=== PATIENT | male | born 1950 | race Caucasian/White ===

== ENCOUNTER → 2023-10-31 07:55 | Outpatient (REF) | payer MEDICARE, SELFPAY | LOC: DHCBC/DCA 07:55 | PROVIDERS: ATTENDING PHYSICIAN Internal Medicine Cardiovascular Disease; FAMILY PHYSICIAN Family Medicine | DX: I25.10 Atherosclerotic heart disease of native coronary artery without angina pectoris (principal); R07.89 Other chest pain | CPT/HCPCS: 78452; 93017; A9500 ==

== ENCOUNTER 2024-02-02 11:40 | Emergency (ER) | payer MEDICARE, SELFPAY ==
[2024-02-02] VITALS (25 sets, daily range): BP systolic 95–146; BP diastolic 60–104; BMI 30.3
[2024-02-02] MEDS: CARDIZEM 25 MG IV (12:03)
[2024-02-02] MEDS: NSS 1000 IV (12:03)
[2024-02-02 12:09] LABS: % Basophils 0.4 % (0-2); % Eosinophils 1.1 % (0-6); % Immature Granulocytes 0.3 % (0-0.5); % Lymphocytes 16.4 % (20.5-51.1); % Monocytes 6.4 % (1.7-9.3); % Neutrophils 75.4 % (42.2-75.2); Hematocrit 46.1 % (39.0-52.0); Hemoglobin 16.1 g/dL (13.0-18.0); Mean Corp Hgb Conc. 34.9 g/dL (33.0-37.0); Mean Corpuscular Hgb 32.1 pg (27.0-31.0); Mean Platelet Volume 10.4 fL (7.4-10.4); Platelet Count 154 10^3/uL (130-400); Red Blood Cell Count 5.01 10^6/uL (4.70-6.10); Red Cell Dist. Width 12.2 % (11.5-14.5); White Blood Cell Count 7.9 10^3/uL (4.8-10.8)
[2024-02-02 12:10] LABS: Absolute Eosinophils 0.1 10^3/uL (0-0.7); Absolute Lymphocytes 1.3 10^3/uL (1.2-3.4); Absolute Monocytes 0.5 10^3/uL (0.1-0.6); Nucleated Red Blood Cells % 0 % (-)
[2024-02-02 12:34] LABS: ALT (SGPT) 27 U/L (0-50); AST (SGOT) 26 U/L (17-59); Albumin 4.4 g/dl (3.5-5.0); Alkaline Phosphatase 81 U/L (38-126); Blood Urea Nitrogen 21 mg/dl (9-20); Calcium 9.8 mg/dl (8.4-10.2); Carbon Dioxide 25 mmol/L (22-30); Chloride 103 mmol/L (98-107); Estimated Creatinine Clearance > 125 ml/min; Glucose 181 mg/dl (70-99); Potassium 4.3 mmol/L (3.5-5.1); Sodium 138 mmol/L (135-145); Total Bilirubin 0.6 mg/dl (0.2-1.3); Total Protein 7.1 g/dl (6.3-8.2); eGFR > 60.00
[2024-02-02 12:47] LABS: Magnesium 1.9 mg/dl (1.6-2.3)
[2024-02-02] MEDS: DIPRIVAN 60 MG IV (13:17)
[2024-02-02] MEDS: DIPRIVAN 20 MG IV (13:19)
--- NOTE | 2024-02-02 13:28 | ED.GENMED ---
History of Present Illness
<Ru Cabrera PA-C - Last Filed: 02/02/24 17:24>
General
Chief Complaint: Heart Rate Problem
Time Seen by Provider: 02/02/24 11:50
Travel History
Have you had any contact with someone who has COVID-19?: No
Do you have any symptoms of coronavirus? Fever > 100 degrees, chills, cough, shortness of breath, sore throat, loss of taste or smell, muscle aches, or headache?: No
History of Present Illness
History of Present Illness:
69 male history of paroxysmal A-fib on Eliquis presents to the emergency department for evaluation of heart palpitations and elevated heart rate. This morning. Has required cardioversion in the past and states this feels similar. Denies any chest
pain or trouble breathing at this time. Has been fully compliant with his Eliquis. Last p.o. intake was approximately 3 to 4 hours ago. He admits to drinking red wine last night which has provoked A-fib in the past
Past History
<Ru Cabrera PA-C - Last Filed: 02/02/24 17:24>
Past History
ED Past Medical History: Arrthythmia (Atrial fib/Flutter), CAD, GERD, HTN and Hypercholesterolemia
ED Past Surgical History: Cardiac (Ablation, Stents X3,), Orthopedic and Other (Hernia repair)
Patient has exhibited threatening behavior?: No
PSI?: No
Social History
Tobacco: Smoker (Occasional cigar)
Alcohol: Occasional
Personal:
Living: with family
Employment: Employed
Review of Systems
<Ru Cabrera PA-C - Last Filed: 02/02/24 17:24>
Review of Systems
Allergies reviewed?: Yes
All Other Systems: ROS reviewed and negative except as documented in HPI and ROS
Phy Exam
<Ru Cabrera PA-C - Last Filed: 02/02/24 17:24>
Physical Exam
Physical Exam:
GEN: Well appearing, NAD, WDWN
HEENT: Oral mucosa moist, no scleral icterus
Cardiac: Tachycardic but regular, no murmurs
Lung: No respiratory distress, no tachypnea
MSK: No gross deformity or injuries
Skin: Good color, no pallor or jaundice, no rashes
Neuro: AO x3, moves all extremities freely
Psych: Calm, cooperative
Course
<Ru Cabrera PA-C - Last Filed: 02/02/24 17:24>
Orders/Labs/Results
Orders:
Orders
02/02/24 11:45
EKG [Electrocardiogram (*1)] Urgent
Reason for Study: Tachycardia
EKG- Treatment ONCE
02/02/24 11:57
IV Insert/Care/Rem.- Treatment PRN
02/02/24 11:58
Complete Blood Count/With Diff Urgent
Comprehensive Metabolic Panel Urgent
Magnesium Urgent
02/02/24 11:59
Add On- LAB Urgent
Tests Added?: magnesium
0.9% Sodium Chloride 1000 ml [Nss] 1,000 ml IV BOLUS
Diltiazem HCl [Cardizem] 25 mg IV NOW STA
02/02/24 12:43
Propofol [Diprivan] 20 ml .ROUTE .STK-MED
02/02/24 13:20
Propofol [Diprivan] 60 mg IV NOW STA
02/02/24 13:22
Propofol [Diprivan] 20 mg IV NOW STA
Abnormal Lab Results
02/02/24
11:58
MCH 32.1 H pg
(27.0-31.0)
Neutrophils % 75.4 H %
(42.2-75.2)
Lymphocytes % 16.4 L %
(20.5-51.1)
BUN 21 H mg/dl
(9-20)
Creatinine 0.6 L mg/dL
(0.7-1.3)
Glucose 181 H mg/dl
(70-99)
02/02/24 11:58
02/02/24 11:58
Vital Signs
Initial and Last Documented VS:
Initial Vital Signs
Temp Pulse Resp BP Pulse Ox
98.2 F 146 18 126/84 95
02/02/24 11:43 02/02/24 11:43 02/02/24 11:43 02/02/24 11:43 02/02/24 11:43
Last Documented Vital Signs
Temp Pulse Resp BP Pulse Ox
98.2 F 72 20 108/71 93
02/02/24 13:15 02/02/24 14:45 02/02/24 14:45 02/02/24 14:40 02/02/24 14:45
<Abhinav Walters, DO - Last Filed: 02/02/24 17:30>
Orders/Labs/Results
Orders:
Orders
02/02/24 11:45
EKG [Electrocardiogram (*1)] Urgent
Reason for Study: Tachycardia
EKG- Treatment ONCE
02/02/24 11:57
IV Insert/Care/Rem.- Treatment PRN
02/02/24 11:58
Complete Blood Count/With Diff Urgent
Comprehensive Metabolic Panel Urgent
Magnesium Urgent
02/02/24 11:59
Add On- LAB Urgent
Tests Added?: magnesium
0.9% Sodium Chloride 1000 ml [Nss] 1,000 ml IV BOLUS
Diltiazem HCl [Cardizem] 25 mg IV NOW STA
02/02/24 12:43
Propofol [Diprivan] 20 ml .ROUTE .STK-MED
02/02/24 13:20
Propofol [Diprivan] 60 mg IV NOW STA
02/02/24 13:22
Propofol [Diprivan] 20 mg IV NOW STA
Abnormal Lab Results
02/02/24
11:58
MCH 32.1 H pg
(27.0-31.0)
Neutrophils % 75.4 H %
(42.2-75.2)
Lymphocytes % 16.4 L %
(20.5-51.1)
BUN 21 H mg/dl
(9-20)
Creatinine 0.6 L mg/dL
(0.7-1.3)
Glucose 181 H mg/dl
(70-99)
02/02/24 11:58
02/02/24 11:58
Vital Signs
Initial and Last Documented VS:
Initial Vital Signs
Temp Pulse Resp BP Pulse Ox
98.2 F 146 18 126/84 95
02/02/24 11:43 02/02/24 11:43 02/02/24 11:43 02/02/24 11:43 02/02/24 11:43
Last Documented Vital Signs
Temp Pulse Resp BP Pulse Ox
98.2 F 72 20 108/71 93
02/02/24 13:15 02/02/24 14:45 02/02/24 14:45 02/02/24 14:40 02/02/24 14:45
Procedures
<Ru Cabrera PA-C - Last Filed: 02/02/24 17:24>
Moderate Sedation
Moderate Sedation Start Time(when first medication is given): 13:17
Moderate Sedation Procedure End Time: 13:27
Cardioversion
Indication:: Afib
Performed by:: Ru Cabrera PA-C, Abhinav Walters DO
Synchronized?: Yes
Energy Used: 150 joules
Number of attempts: 1
Successful?: Yes
ASA Risk Score: Class II
Any reaction or bad outcome to prior sedation/anesthesia?: No history of a reaction
Sedation level to be attained: moderate
Chart and allergies reviewed: Yes
Patient reassessed prior to sedation: Yes
Time out completed at (validating right patient & procedure): 13:16
History of difficult intubation: No
Airway free of obstruction: Yes
Patient has a gag reflex: Yes
Patient is able to open mouth: Yes
Patient has no dentures: Yes
Patient has no loose teeth: Yes
Medication administered by Provider during Moderate Sedation: IV Propofol (mg)
Total dose administered: 80
Time drug administered: 13:16
Start Time: 13:16
Stop Time: 13:27
<Ru Cabrera PA-C - Last Filed: 02/02/24 17:24>
MDM/Problems Addressed
MDM/Problems Addressed:
Patient was able to be rate controlled however remained in A-fib, ultimately required electrical cardioversion that was successful after 1 attempt. Tolerated sedation well.
<Ru Cabrera PA-C - Last Filed: 02/02/24 17:24>
*Critical Care Note
Total Time (30-74mins, 75-104mins- exclusive of procedures): Not Applicable
<Abhinav Walters DO - Last Filed: 02/02/24 17:30>
*Pulse Oximetry
Patient hypoxic: no
ED Attending Note
<Ru Cabrera PA-C - Last Filed: 02/02/24 17:24>
-
Portions of this chart may have been created with voice recognition software.� Occasional wrong word or��sound alike� substitutions may have occurred due to the inherent limitations of voice recognition software.
<Abhinav Walters DO - Last Filed: 02/02/24 17:30>
ED Attending Note
Patient seen and examined by attending physician: Yes
ED Attending Note:
I have reviewed and agree with history and treatment plan by Chuck Cabrera. My exam revealed 73-year-old male in no acute distress, tachycardia rapid atrial fibrillation. Patient tolerated sedation and cardioversion well. Stable for discharge.
Discharge Plan
Departure
Patient Disposition: Home (Routine Discharge)
Date of Disposition: 02/02/24
Time of Disposition: 14:01
Patient with high blood pressure during this ER visit?: No
Discharge Problem:
Paroxysmal A-fib
Instructions: Moderate Sedation in Adults (DC)
Prescriptions:
No Action
nitroglycerin 0.4 MG tablet, sublingual
0.4 mg sublingual [id number] PRN (Reason: Chest Pain ) Qty: 1 1RF
atorvastatin 80 MG tablet
80 mg PO QPM Qty: 30 3RF
Eliquis 5 MG tablet
5 mg PO BID
acyclovir 400 MG tablet
400 mg PO BID PRN (Reason: cold sores)
ascorbic acid (vitamin C) [Vitamin C] 500 MG tablet
500 mg PO BID
multivitamin Tablet
1 tab PO DAILY
metoprolol succinate 25 mg tablet extended release 24 hr
25 mg PO DAILY
Patient Comments:
02/27/2023: Pt had an old script that was originally filled in March of 2022. Pt states heart rate was high so he took one dose and it helped
ezetimibe 10 mg tablet
10 mg PO DAILY
Jardiance 10 mg tablet
10 mg PO DAILY
Referrals:
Aries Melo MD [Family Provider] -
Megan Valencia MD [Active] -
Activity Restrictions/Additional Instructions:
Call your master data analyst tomorrow for a follow up visit
Interventions
Interventions:
*Risk Screen - Suicide Last Done: 02/02/24 11:43
*General Assessment Last Done: 02/02/24 11:43
*Neglect/Abuse Screening Last Done: 02/02/24 11:43
ED- Fall Risk Assessment Last Done: 02/02/24 11:50
*ED COVID-19 Vaccine History Last Done: 02/02/24 11:43
*Nursing Disposition Last Done: 02/02/24 15:03
ED- Cardiac Assessment Last Done: 02/02/24 11:50
ED- Pulmonary Assessment Last Done: 02/02/24 11:50
Discharge Date and Time
Discharge Date/Time: 02/02/24 15:04
Print Language: ESTONIAN
== END 2024-02-02 15:04 | disposition home or self-care (01) ==
LOC: EMR 11:40
PROVIDERS: Physician Assistant; EMERGENCY PHYSICIAN Emergency Medicine; FAMILY PHYSICIAN Family Medicine
DX: R00.2 Palpitations (principal); I48.0 Paroxysmal atrial fibrillation; I25.10 Atherosclerotic heart disease of native coronary artery without angina pectoris; K21.9 Gastro-esophageal reflux disease without esophagitis; I10 Essential (primary) hypertension; E78.00 Pure hypercholesterolemia, unspecified; F17.200 Nicotine dependence, unspecified, uncomplicated; Z79.01 Long term (current) use of anticoagulants
CPT/HCPCS: 99283; 96374; 96375; 96376; 80053; 83735; 85025; 93005

== ENCOUNTER → 2024-04-19 06:32 | Day surgery (SDC) | payer MEDICARE, SELFPAY ==
[2024-04-19 07:32] LABS: Glucose - Point of Care 155 mg/dl (70-99)
== END ==
LOC: GI 06:32
PROVIDERS: ATTENDING PHYSICIAN Internal Medicine; FAMILY PHYSICIAN Internal Medicine Cardiovascular Disease
DX: Z12.11 Encounter for screening for malignant neoplasm of colon (principal); K57.30 Diverticulosis of large intestine without perforation or abscess without bleeding; K63.89 Other specified diseases of intestine; K63.5 Polyp of colon
CPT/HCPCS: 45380; 88305; 82962

== ENCOUNTER 2024-04-25 07:54 | Emergency (ER) | payer MEDICARE, SELFPAY ==
[2024-04-25 07:55] VITALS: BP 134/83
[2024-04-25 08:07] VITALS: BMI 30.7
[2024-04-25 08:09] VITALS: BP 119/80
[2024-04-25 08:11] VITALS: BP 119/80
[2024-04-25 08:26] LABS: % Basophils 0.6 % (0-2); % Eosinophils 2.5 % (0-6); % Immature Granulocytes 0.2 % (0-0.5); % Lymphocytes 25.2 % (20.5-51.1); % Monocytes 9.8 % (1.7-9.3); % Neutrophils 61.7 % (42.2-75.2); Absolute Eosinophils 0.1 10^3/uL (0-0.7); Absolute Lymphocytes 1.2 10^3/uL (1.2-3.4); Absolute Monocytes 0.5 10^3/uL (0.1-0.6); Hematocrit 43.6 % (39.0-52.0); Hemoglobin 15.4 g/dL (13.0-18.0); Mean Corp Hgb Conc. 35.3 g/dL (33.0-37.0); Mean Corpuscular Hgb 31.7 pg (27.0-31.0); Mean Corpuscular Volume 89.7 fL (80.0-94.0); Mean Platelet Volume 10.8 fL (7.4-10.4); Nucleated Red Blood Cells % 0 % (-); Platelet Count 138 10^3/uL (130-400); Red Blood Cell Count 4.86 10^6/uL (4.70-6.10); Red Cell Dist. Width 12.3 % (11.5-14.5); White Blood Cell Count 4.8 10^3/uL (4.8-10.8)
[2024-04-25 08:56] LABS: ALT (SGPT) 27 U/L (0-50); AST (SGOT) 27 U/L (17-59); Alkaline Phosphatase 74 U/L (38-126); Blood Urea Nitrogen 17 mg/dl (9-20); Calcium 9.2 mg/dl (8.4-10.2); Carbon Dioxide 26 mmol/L (22-30); Chloride 100 mmol/L (98-107); Estimated Creatinine Clearance 107 ml/min; Glucose 221 mg/dl (70-99); Potassium 4.3 mmol/L (3.5-5.1); Sodium 136 mmol/L (135-145); Total Bilirubin 0.6 mg/dl (0.2-1.3); Total Protein 6.4 g/dl (6.3-8.2); eGFR > 60.00
[2024-04-25 09:00] VITALS: BP 127/80
--- NOTE | 2024-04-25 09:12 | ED.GENMED ---
History of Present Illness
General
Chief Complaint: Cardiac Symptoms
Source: patient
Exam Limitations: none
Time Seen by Provider: 04/25/24 08:03
History of Present Illness
History of Present Illness:
74-year-old male woke this morning feeling he was in atrial fibrillation. No chest pain shortness of breath no syncope. History of same. Patient is anticoagulated and faithful with meds
Past History
Past History
ED Past Medical History: Arrthythmia (Atrial fib/Flutter), CAD, GERD, HTN and Hypercholesterolemia
ED Past Surgical History: Cardiac (Ablation, Stents X3,), Orthopedic and Other (Hernia repair)
Patient has exhibited threatening behavior?: No
PSI?: No
Social History
Tobacco: Smoker (Occasional cigar)
Alcohol: Occasional
Personal:
Living: with family
Employment: Employed
Review of Systems
Review of Systems
All Other Systems: Not applicable
Constitutional: Denies fever
Respiratory: Denies trouble breathing
Cardiac: Denies chest pain or syncope
Phy Exam
Physical Exam
Physical Exam:
GENERAL: Alert and oriented in no apparent distress
EYE: Orbits normal.
NECK: Supple
CARDIAC: Mildly irregular no murmur
LUNGS: Clear breath sounds,normal
ABDOMEN: Soft, without focal tenderness or distention
NEUROLOGICAL: Alert and oriented , grossly non-focal
SKIN: Warm and dry, no rash or lesion, no discoloration, skin intact.
MUSCULOSKELETAL: No edema,no deformity.Good color
PSYCH: Normal and appropriate interaction.
Course
Orders/Labs/Results
Orders:
Orders
04/25/24 07:55
Electrocardiogram (*1) Urgent
Reason for Study: Atrial Fibrillation
EKG- Treatment ONCE
04/25/24 08:16
CMP [Comprehensive Metabolic Panel] Urgent
Complete Blood Count/With Diff Urgent
Abnormal Lab Results
04/25/24
08:16
MCH 31.7 H pg
(27.0-31.0)
MPV 10.8 H fL
(7.4-10.4)
Monocytes % 9.8 H %
(1.7-9.3)
Glucose 221 H mg/dl
(70-99)
04/25/24 08:16
04/25/24 08:16
Vital Signs
Initial and Last Documented VS:
Initial Vital Signs
Temp Pulse Resp BP Pulse Ox
97.8 F 65 18 134/83 94
04/25/24 07:55 04/25/24 07:55 04/25/24 07:55 04/25/24 07:55 04/25/24 07:55
Last Documented Vital Signs
Temp Pulse Resp BP Pulse Ox
97.8 F 81 21 127/80 93
04/25/24 07:55 04/25/24 09:45 04/25/24 09:45 04/25/24 09:00 04/25/24 09:45
MDM/Problems Addressed
Differential Diagnosis Includes:
Patient with very rate controlled atrial fibrillation. Anticoagulated. No other symptoms. Discussed cardioversion versus more conservative management. Both are reasonable. After lengthy discussion patient is comfortable with observation to see
if this self resolves. Rate has been mostly in the 90s at rest. We will walk him around the ER to make sure he either does not become significantly symptomatic or have a significant bump in his heart rate.
*Pulse Oximetry
Patient hypoxic: no
*EKG
Interpreted by ED Provider?: Yes
Interpretation: abnormal
Comparison EKG: changes noted
Heart Rate: 102
Rate: tachycardiac
Rhythm: a-fib
[place]: normal axis
Interval: normal interval
QRS Pattern: normal QRS
Ischemia: non-specific ST changes
*Bag Builder Interpretation
Rate: normal
Interpretation: abnormal
Heart Rate: 95
Rhythm: a-fib
*Critical Care Note
Total Time (30-74mins, 75-104mins- exclusive of procedures): Not Applicable
Data Reviewed
Review of Other/Old Records Reveals: Labs, Records and Testing
Update Note
Update Note:
Patient ambulating well. Heart rate went up to about 115. Back to a heart rate about 90. Discussed again cardioversion versus observation. Patient is comfortable with observation. Cardiology contacted and is in agreement. They will follow-up
this week.
ED Attending Note
-
Portions of this chart may have been created with voice recognition software.� Occasional wrong word or��sound alike� substitutions may have occurred due to the inherent limitations of voice recognition software.
Discharge Plan
Departure
Patient Disposition: Home (Routine Discharge)
Date of Disposition: 04/25/24
Time of Disposition: 10:07
Patient with high blood pressure during this ER visit?: Yes
Discharge Problem:
Atrial fibrillation
Instructions: Atrial Fibrillation (DC)
Prescriptions:
No Action
nitroglycerin 0.4 MG tablet, sublingual
0.4 mg sublingual [id number] PRN (Reason: Chest Pain ) Qty: 1 1RF
atorvastatin 80 MG tablet
80 mg PO QPM Qty: 30 3RF
Eliquis 5 MG tablet
5 mg PO BID
acyclovir 400 MG tablet
400 mg PO BID PRN (Reason: cold sores)
ascorbic acid (vitamin C) [Vitamin C] 500 MG tablet
500 mg PO BID
multivitamin Tablet
1 tab PO DAILY
metoprolol succinate 25 mg tablet extended release 24 hr
25 mg PO DAILY
Patient Comments:
02/27/2023: Pt had an old script that was originally filled in March of 2022. Pt states heart rate was high so he took one dose and it helped
ezetimibe 10 mg tablet
10 mg PO DAILY
Jardiance 10 mg tablet
10 mg PO DAILY
Referrals:
Aries Melo MD [Family Provider] -
Activity Restrictions/Additional Instructions:
Call your cardiac group first thing tomorrow morning for follow-up this week. They are aware and you may also receive a call from them
As we discussed, return with persistent high heart rate chest pain short of breath lightheadedness feeling of passing out weakness or any other concerning symptom
Interventions
Interventions:
*Risk Screen - Suicide Last Done: 04/25/24 07:55
*General Assessment Last Done: 04/25/24 07:55
*Neglect/Abuse Screening Last Done: 04/25/24 07:55
ED- Fall Risk Assessment Last Done: 04/25/24 08:11
*ED COVID-19 Vaccine History Last Done: 04/25/24 08:11
ED- Pulmonary Assessment Last Done: 04/25/24 08:11
ED- Cardiac Assessment Last Done: 04/25/24 08:11
Discharge Date and Time
Print Language: COLOMBIAN
== END 2024-04-25 10:22 | disposition home or self-care (01) ==
LOC: EMR 07:54
PROVIDERS: EMERGENCY PHYSICIAN Emergency Medicine; FAMILY PHYSICIAN Family Medicine
DX: I48.91 Unspecified atrial fibrillation (principal); I10 Essential (primary) hypertension; F17.200 Nicotine dependence, unspecified, uncomplicated
CPT/HCPCS: 99283; 80053; 85025; 93005

== ENCOUNTER → 2024-04-26 15:20 | Outpatient (REF) | payer MEDICARE, SELFPAY | LOC: RAD 15:20 | PROVIDERS: ATTENDING PHYSICIAN Internal Medicine Cardiovascular Disease; FAMILY PHYSICIAN Family Medicine | DX: I65.23 Occlusion and stenosis of bilateral carotid arteries (principal) | CPT/HCPCS: 93880 ==

== ENCOUNTER 2024-04-27 18:50 | Inpatient (IN) | payer MEDICARE, SELFPAY ==
[2024-04-27] VITALS (8 sets, daily range): BP systolic 128–157; BP diastolic 79–123; BMI 29.3
--- NOTE | 2024-04-27 17:17 | ED.GENMED ---
History of Present Illness
General
Chief Complaint: Heart Rate Problem
Source: patient and records
Exam Limitations: none
Time Seen by Provider: 04/27/24 17:05
Nursing documentation reviewed up to this point in time: agreed with
History of Present Illness
History of Present Illness:
74-year-old male presents emergency room complaining of chest tightness, palpitations and weakness since Friday. He came to the emergency department on Friday, and they elected to wait to see if he converted. He went to cardiology office on Friday
and was told he get a cardioversion in May as he did miss Rubi anguiano.
Past History
Past History
ED Past Medical History: Arrthythmia (Atrial fib/Flutter), CAD, GERD, HTN and Hypercholesterolemia
ED Past Surgical History: Cardiac (Ablation, Stents X3,), Orthopedic and Other (Hernia repair)
Patient has exhibited threatening behavior?: No
PSI?: No
Social History
Tobacco: Smoker (Occasional cigar)
Alcohol: Occasional
Personal:
Living: with family
Employment: Employed
Review of Systems
Review of Systems
Allergies reviewed?: Yes
All Other Systems: Not applicable
Constitutional: Reports no symptoms
EENT: Reports no symptoms
Respiratory: Reports no symptoms
Cardiac: Reports palpitations
ABD/GI: Reports no symptoms
: Reports no symptoms
Musculoskeletal: Reports no symptoms
Skin: Reports no symptoms
Neurological: Reports no symptoms
Endocrine: Reports no symptoms
Hematologic/Lymphatic: Reports no symptoms
Psychiatric: Reports no symptoms
Phy Exam
Physical Exam
Physical Exam:
Physical Exam
General: no apparent distress, not acutely ill
Neck: supple. no meningeal signs. normal posterior pharynx
Heart: s1/s2 tachycardia, irregular rhythm, no murmur. equal radial
pulses.
HEENT: Pupils equal round reactive to light, EOMI
Lungs: no acute respiratory distress. clear bilaterally
Abdomen: normal bowel sounds. not tender. no CVAT
Neuro: alert and oriented. no focal neurological deficits cranial nerves II through XII intact
Skin: no rash
Psychiatric: well kept. interactive and cooperative
Extremities: no edema. no calf tenderness. negative homans. good distal pulses
Course
Orders/Labs/Results
Orders:
Orders
04/27/24 16:39
ECG [Electrocardiogram (*1)] Urgent
Reason for Study: Atrial Fibrillation
EKG- Treatment ONCE
04/27/24 17:19
Diltiazem 125 mg/125 ml Nss [Cardizem] 125 mg in 125 ml IV NOW
Initial dose in mg/hr, then titrate:: 5
Titrate to keep:: Heart rate 80-100 bpm
Titrate by mg/hr:: 5 mg/hr
Frequency of titrations (minutes):: 15
Maximum dose in mg/hr:: 15
Diltiazem HCl [Cardizem] 5 mg IV NOW STA
04/27/24 17:25
IV Insert/Care/Rem.- Treatment PRN
04/27/24 17:40
Complete Blood Count/With Diff Urgent
Comprehensive Metabolic Panel Urgent
04/27/24 18:37
Admit/Transfer Patient As Directed
Co-Sign Provider:
Level of Care: Inpatient admission
Assign to:: IVU
Physician / Group: constantine
Diagnosis: afib rvr
Reason for Hospitalization: afib rvr
Expected length of stay greater than two midnights?: Yes
ELOS- Estimated Length of Stay in days: 2
I certify the patient meets the requirements for IP care: Yes
PRN Pain Medication Management As Directed
May give lesser potent ordered pain med per pt: Yes
preference::
Protocol:: Medication orders for pain may be administered in a
manner that supports deferring to patient preference
when the pt is:
- Requesting an ordered lesser potent pain medication.
Least to most potent pain medications are defined
as: acetaminophen < NSAID < tramadol < opioids
(morphine, oxycodone, hydromorphone).
- Requesting a lesser dose of the same medication IF
ORDERED.
- Requesting a less intrusive route of administration
if both routes are prescribed by the provider (PO <
IV).
04/27/24 18:38
Code Status As Directed
Resuscitation Status: Full Code
Abnormal Lab Results
04/27/24
17:40
MCH 31.5 H pg
(27.0-31.0)
MPV 11.0 H fL
(7.4-10.4)
Glucose 134 H mg/dl
(70-99)
04/27/24 17:40
04/27/24 17:40
Vital Signs
Initial and Last Documented VS:
Initial Vital Signs
Temp Pulse Resp BP Pulse Ox
97.5 F 145 18 157/98 97
04/27/24 16:43 04/27/24 16:43 04/27/24 16:43 04/27/24 16:43 04/27/24 16:43
Last Documented Vital Signs
Temp Pulse Resp BP Pulse Ox
97.5 F 133 16 148/117 95
04/27/24 16:43 04/27/24 17:35 04/27/24 16:53 04/27/24 17:35 04/27/24 16:58
MDM/Problems Addressed
Differential Diagnosis Includes:
Rapid atrial fibrillation, CHF
MDM/Problems Addressed:
74-year-old female with rapid atrial fibrillation. Currently not a candidate for cardioversion as he has missed Eliquis doses. IV diltiazem drip, admit to hospitalist.
Chronic conditions affecting care: Arrhythmia
Acute Exacerbation and/or Progression of Chronic Illness: Arrhythmia
*Pulse Oximetry
Patient hypoxic: no
*EKG
Interpreted by ED Provider?: Yes
EKG Intrepretation Date: 04/27/24
EKG Intrepretation Time: 16:43
Interpretation: abnormal
Comparison EKG: no changes
Heart Rate: 97
Rate: normal
Rhythm: atrial flutter
[place]: normal axis
Interval: normal interval
QRS Pattern: normal QRS
Ischemia: no ischemia
*Head Gauge Unit Operator Interpretation
Rate: tachycardiac
Interpretation: abnormal
Heart Rate: 144
Rhythm: a-fib
*Critical Care Note
Total Time (30-74mins, 75-104mins- exclusive of procedures): 30
comment:
Critical care statement: A total of 30 minutes of critical care time was provided for this patient. This includes management of unstable vital signs, evaluation of the patient at bedside, reviewing the patient's pertinent medical records, discussion
with consultants, review of old EKGs and review of pertinent medical records. This time with separate from time utilized to perform the aforementioned documented procedures
Data Reviewed
Prescriptions/Medications Considered But Not Given:
Cardioversion considered, but not indicated
Patient Management
Discussion with other providers: Hospitalist
Escalation/DeEscalation of care consider admission/obs:
Admit indicated
ED Attending Note
-
Portions of this chart may have been created with voice recognition software.� Occasional wrong word or��sound alike� substitutions may have occurred due to the inherent limitations of voice recognition software.
Discharge Plan
Departure
Patient Disposition: Admit
Date of Disposition: 04/27/24
Time of Disposition: 18:15
Admit to: IVU
Presentation/result/management discussed w/ accepting MD/DO: Hospitalist
Patient with high blood pressure during this ER visit?: Yes
Condition: Fair
Discharge Problem:
Atrial fibrillation with RVR
Prescriptions:
No Action
Eliquis 5 MG tablet
5 mg PO BID
acyclovir 400 MG tablet
400 mg PO BIDPRN PRN (Reason: cold sores)
multivitamin Tablet
1 tab PO DAILY
metoprolol succinate 25 mg tablet extended release 24 hr
25 mg PO QPM
Patient Comments:
02/27/2023: Pt had an old script that was originally filled in March of 2022. Pt states heart rate was high so he took one dose and it helped
ezetimibe 10 mg tablet
10 mg PO DAILY
Jardiance 10 mg tablet
10 mg PO DAILY
rosuvastatin 40 mg tablet
40 mg PO DAILY
Referrals:
Aries Melo MD [Family Provider] -
Interventions
Interventions:
*Risk Screen - Suicide Last Done: 04/27/24 16:43
*General Assessment Last Done: 04/27/24 16:43
*Neglect/Abuse Screening Last Done: 04/27/24 16:43
ED- Fall Risk Assessment Last Done: 04/27/24 16:58
*ED COVID-19 Vaccine History Last Done: 04/27/24 16:58
ED- Cardiac Assessment Last Done: 04/27/24 16:58
ED- Pulmonary Assessment Last Done: 04/27/24 16:58
Discharge Date and Time
Print Language: INDONESIAN
[2024-04-27] MEDS: CARDIZEM 125 IV (17:34)
[2024-04-27] MEDS: CARDIZEM 5 MG IV (17:35)
[2024-04-27 17:49] LABS: % Basophils 0.7 % (0-2); % Eosinophils 1.6 % (0-6); % Immature Granulocytes 0.4 % (0-0.5); % Lymphocytes 25.5 % (20.5-51.1); % Monocytes 7.7 % (1.7-9.3); % Neutrophils 64.1 % (42.2-75.2); Absolute Eosinophils 0.1 10^3/uL (0-0.7); Absolute Lymphocytes 1.5 10^3/uL (1.2-3.4); Absolute Monocytes 0.4 10^3/uL (0.1-0.6); Absolute Neutrophils 3.6 10^3/uL (1.4-6.5); Hematocrit 44.5 % (39.0-52.0); Hemoglobin 15.7 g/dL (13.0-18.0); Mean Corp Hgb Conc. 35.3 g/dL (33.0-37.0); Mean Corpuscular Hgb 31.5 pg (27.0-31.0); Mean Corpuscular Volume 89.4 fL (80.0-94.0); Nucleated Red Blood Cells % 0 % (-); Platelet Count 145 10^3/uL (130-400); Red Blood Cell Count 4.98 10^6/uL (4.70-6.10); Red Cell Dist. Width 12.4 % (11.5-14.5); White Blood Cell Count 5.7 10^3/uL (4.8-10.8)
[2024-04-27 18:07] LABS: ALT (SGPT) 30 U/L (0-50); AST (SGOT) 32 U/L (17-59); Albumin 4.6 g/dl (3.5-5.0); Alkaline Phosphatase 62 U/L (38-126); Blood Urea Nitrogen 16 mg/dl (9-20); Calcium 9.4 mg/dl (8.4-10.2); Carbon Dioxide 24 mmol/L (22-30); Chloride 101 mmol/L (98-107); Estimated Creatinine Clearance 94 ml/min; Glucose 134 mg/dl (70-99); Sodium 137 mmol/L (135-145); Total Bilirubin 0.8 mg/dl (0.2-1.3); Total Protein 7.1 g/dl (6.3-8.2); eGFR > 60.00
--- NOTE | 2024-04-27 18:41 | HPS.HSE ---
Addendum entered and electronically signed by Arianna Viera MD 04/27/24 18:44:
Alcohol withdrawal protocol.
Original Note:
Family Physician
-
Family Physician: Aries Melo
Chief Complaint
-
chest pressure
History of Present Illness
74-year-old male past medical history of atrial fibrillation/flutter status post ablation, syncope secondary to orthostatic hypotension, coronary artery disease status post stents, mild aortic stenosis, diabetes, essential hypertension, GERD,
hypercholesterolemia, presenting with chest tightness, palpitations and weakness and dizziness for the past 2 days. He came to the emergency room 2 days ago and outpatient cardioversion was recommended. He is continue to have symptoms so he came
back to the emergency room. He denies any shortness of breath or nausea or vomiting or sweating. He denies any lower extremity edema.
He missed 1 dose of Eliquis last week due to having screening colonoscopy. Colonoscopy was unremarkable.
He drinks 2 to 4 glasses of wine up to 4 times a week. His last drink was last night.
He denies smoking. Denies any drugs.
Medical History
Past Medical History
Past Medical History: Reports Other (atrial fibrillation/flutter status post ablation, syncope secondary to orthostatic hypotension, coronary artery disease status post stents, mild aortic stenosis, diabetes, essential hypertension, GERD,
hypercholesterolemia)
Past Surgical History: Reports Other (Cardiac (Ablation, Stents X3,), Orthopedic and Other (Hernia repair))
Social History
Tobacco: Non-smoker
Alcohol: Occasional
Drug: None
Family History
Family History: Not pertinent
Allergies / Home Medications
Allergies reflects when Allergies were last updated in [employer].
Home Medications with original date entered in [facility]
Allergy/Medication List:
Allergies
Allergy/AdvReac Type Severity Reaction Status Date / Time
No Known Allergies Allergy Verified 04/25/24 07:55
Home Medications
acyclovir 400 mg tablet 400 mg PO BIDPRN PRN cold sores 07/24/18
apixaban 5 mg tablet (Eliquis) 5 mg PO BID Blood Clot Prevention/Tx 07/24/18
empagliflozin 10 mg tablet (Jardiance) 10 mg PO DAILY Diabetes 02/27/23
ezetimibe 10 mg tablet 10 mg PO DAILY High Cholesterol 02/27/23
metoprolol succinate 25 mg tablet,extended release 24 hr 25 mg PO QPM Blood Pressure 02/27/23
multivitamin 1 tab PO DAILY Supplement 02/27/23
rosuvastatin 40 mg tablet 40 mg PO DAILY 04/27/24
Review of Systems
-
History Source: Patient
A 12 point ROS was completed and negative except as noted: Yes
Constitutional: Reports No Symptoms
EENT: Reports No Symptoms
Respiratory: Reports No Symptoms
Cardiac: Reports See HPI
Abdomen/GI: Reports No Symptoms
: Reports No Symptoms
Musculoskeletal: Reports No Symptoms
Skin: Reports No Symptoms
Neurological: Reports No Symptoms
Endocrine: Reports No Symptoms
Hematologic/Lymphatic: Reports No Symptoms
Psych: Reports No Symptoms
Physical Exam
Vital Signs
Vital Signs
Temp Pulse Resp BP Pulse Ox
97.5 F 133 16 148/117 95
04/27/24 16:43 04/27/24 17:35 04/27/24 16:53 04/27/24 17:35 04/27/24 16:58
Physical Exam
General: Well Developed, Well Nourished and No Apparent Distress
HEENT: NormoCephalic, Moist mucous membranes and Atraumatic
Respiratory: Clear
Cardiac: S1/S2, Irregular Rhythm and Tachycardia; No Murmur or Rub
GI: Soft, Non Tender, Non Distended and Normal Bowel Sounds; No Organomegaly
Rectal: Deferred by Provider
Musculoskeletal: No Clubbing, No Cyanosis and No Edema
Skin: No Rash
Neuro: Nonfocal/grossly intact
Laboratory Results
-
04/27/24 17:40
04/27/24 17:40
Laboratory Results
Total Bilirubin 0.8 mg/dl (0.2-1.3) 04/27/24 17:40
AST 32 U/L (17-59) 04/27/24 17:40
ALT 30 U/L (0-50) 04/27/24 17:40
Alkaline Phosphatase 62 U/L (38-126) 04/27/24 17:40
Data Reviewed
-
Lab Data: Labs Reviewed by me
Old Records: Reviewed
Impression/Plan
-
IMPRESSION:
PLAN:
# Atrial fibrillation with RVR possibly from alcohol use
-EKG shows
-Cardizem drip
-Continue Eliquis
-Continue metoprolol
-Check TSH
-N.p.o. past midnight for potential cardioversion tomorrow
-cardiology consulted
Moderate alcohol use
-Monitor for withdrawal
CAD status post stents
Mild aortic stenosis
Essential hypertension
GERD
Type 2 diabetes
-Continue Jardiance
Hypercholesterolemia
-Continue Zetia, statin
Full code
DVT prophylaxis�Eliquis
Regular diet, n.p.o. past midnight
--- NOTE | 2024-04-27 20:36 | PTCARENOTE ---
Pt admitted into [facility]- ambulated as a self. Cardizem gtt running @ 5ml/hr. HR in the 80s-90s. AFIB.
[2024-04-27] MEDS: ELIQUIS 5 MG PO (20:44)
[2024-04-27 22:42] LABS: TSH Reflex To Free T4 2.23 uIU/ml (0.47-4.68)
[2024-04-28] VITALS (10 sets, daily range): BP systolic 100–127; BP diastolic 69–98; BMI 29.4
--- NOTE | 2024-04-28 03:07 | DOWNTIME ---
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 Downtime documentation of patient's care, including medication administrations, has been reconciled in the electronic record per guidelines. Refer to the
patient's paper chart under the miscellaneous tab to see printed paper medication records and downtime forms.
[2024-04-28 04:50] LABS: % Basophils 0.5 % (0-2); % Eosinophils 3.2 % (0-6); % Immature Granulocytes 0.2 % (0-0.5); % Lymphocytes 26.2 % (20.5-51.1); % Monocytes 7.6 % (1.7-9.3); % Neutrophils 62.3 % (42.2-75.2); Absolute Eosinophils 0.2 10^3/uL (0-0.7); Absolute Lymphocytes 1.5 10^3/uL (1.2-3.4); Absolute Monocytes 0.4 10^3/uL (0.1-0.6); Absolute Neutrophils 3.5 10^3/uL (1.4-6.5); Hematocrit 44.5 % (39.0-52.0); Hemoglobin 15.7 g/dL (13.0-18.0); Mean Corp Hgb Conc. 35.3 g/dL (33.0-37.0); Mean Corpuscular Hgb 31.5 pg (27.0-31.0); Mean Corpuscular Volume 89.2 fL (80.0-94.0); Mean Platelet Volume 10.6 fL (7.4-10.4); Nucleated Red Blood Cells % 0 % (-); Platelet Count 145 10^3/uL (130-400); Red Blood Cell Count 4.99 10^6/uL (4.70-6.10); Red Cell Dist. Width 12.3 % (11.5-14.5); White Blood Cell Count 5.7 10^3/uL (4.8-10.8)
[2024-04-28 04:55] LABS: ALT (SGPT) 29 U/L (0-50); AST (SGOT) 28 U/L (17-59); Albumin 4.1 g/dl (3.5-5.0); Alkaline Phosphatase 60 U/L (38-126); Blood Urea Nitrogen 16 mg/dl (9-20); Calcium 9.1 mg/dl (8.4-10.2); Carbon Dioxide 23 mmol/L (22-30); Chloride 103 mmol/L (98-107); Estimated Creatinine Clearance 94 ml/min; Glucose 140 mg/dl (70-99); Potassium 4.2 mmol/L (3.5-5.1); Sodium 135 mmol/L (135-145); Total Bilirubin 0.8 mg/dl (0.2-1.3); Total Protein 6.6 g/dl (6.3-8.2); eGFR > 60.00
--- NOTE | 2024-04-28 08:58 | W.PN.HOSP.TC ---
Addendum entered and electronically signed by Sajan Narayanan MD 04/28/24 09:16:
I saw and evaluated the patient. I reviewed the resident�s note and agree with findings and plan as documented in the resident�s note.
Denies CP/SOB.
Gen: NAD, AAOx3.
Eyes: EOMI, PERRLA, no scleral icterus.
Neck: supple.
CV: RRR, +S1/S2, no m/r/g.
Resp: CTAB, no rales, wheezes, or rhonchi.
Abd: +BS, soft, NT, ND
Skin: No rashes.
Neuro: CN 2-12 intact, non-focal.
Psych: Normal mood and affect.
Atrial flutter with RVR:
-Tele with aflutter
-cont cardizem gtt
-cont Eliquis
-possible TEECV
-discussed with cardiology
Original Note:
Today's Communication/Plan
-
Plan pending cardiology recommendations. Likely cardioversion. Keep NPO
Assessment / Plan
Assessment / Plan
# Atrial fibrillation with RVR possibly from alcohol use
-EKG shows A.fib
-On telemetry
-Continue Cardizem drip
-Continue Eliquis
-Continue metoprolol
-Check TSH
-N.p.o. for potential cardioversion today
-cardiology recommendations pending
#Moderate alcohol use
-Monitor for withdrawal
#CAD status post stents
#Mild aortic stenosis
#Essential hypertension
#GERD
#DM2 -Continue Jardiance
#Hypercholesterolemia -Continue Zetia, statin
Anticipated Discharge: Within 24 hours
Subjective/Interval History
-
Date of Service: April 28, 2024
Objective Data
-
Labs:
Laboratory Results
04/28/24
04:01
WBC 5.7
Hgb 15.7
Hct 44.5
Plt Count 145
Sodium 135
Potassium 4.2
Chloride 103
Carbon Dioxide 23
BUN 16
Creatinine 0.7
Glucose 140 H
Calcium 9.1
Total Bilirubin 0.8
AST 28
ALT 29
Alkaline Phosphatase 60
Vital Signs:
Vital Signs
Temp Pulse Resp BP Pulse Ox
98 F 74 20 100/82 97
04/28/24 07:00 04/28/24 04:01 04/28/24 07:00 04/28/24 04:01 04/28/24 07:00
I&O
04/27/24 04/28/24 04/29/24
06:59 06:59 06:59
Intake Total 290 / 290
Balance 290 / 290
Review of Systems
-
History Source: Patient
Respiratory: Reports No Symptoms
Cardiac: Reports Palpitations; Denies Chest Pain, Diaphoresis or Syncope
Abdomen/GI: Reports No Symptoms
Genitourinary: Reports No Symptoms
Neuro: Reports No Symptoms; Denies Dizzy, Headache or Weakness
Physical Exam
-
General: Well Developed, Well Nourished, No Apparent Distress and Comfortable
HEENT: Normocephalic
Cardiac: Irregular Rhythm; Negative Murmur, Rub or Tachycardic
GI: Soft, Nontender and Nondistended
Musculoskeletal: No Edema
Skin: Warm and Dry
Neuro: AO x 3
Psych: Calm
[2024-04-28] MEDS: VITAMIN B1 100 MG PO (09:15)
[2024-04-28] MEDS: CRESTOR 40 MG PO (09:15)
[2024-04-28] MEDS: FOLVITE 1 MG PO (09:15)
[2024-04-28] MEDS: ELIQUIS 5 MG PO ×2 (09:16→20:16)
[2024-04-28] MEDS: JARDIANCE 10 MG PO (09:16)
[2024-04-28] MEDS: THERAGRAN 1 TABLET PO (09:16)
[2024-04-28] MEDS: ZETIA 10 MG PO (09:16)
--- NOTE | 2024-04-28 10:18 | CON.CAR ---
Addendum entered and electronically signed by John Crespo MD 04/28/24 12:28:
74 yo male with PMH of paroxysmal A fib on eliquis, s/p PVI 2019, CAD with prior stent, mild , presents to ED with symptomatic A fib with RVR. Now on diltiazem drip, with rate controlled atrial flutter, with no sxs. Exam with irregular rhythm, no
edema. Tele: A fl 70s.
He did have eliquis held recently for colonoscopy. We discussed rhythm control. Will proceed with SRIRAM/DCCV tomorrow.
Continue eliquis; and diltiazem drip.
If A fib or flutter recurs, we discussed referral back to EP.
Original Note:
Consultation
Consultation Request
Date/Time Consultation Requested: 04/27/24 9727
Date/Time Consultation Performed: 04/28/24 1000
Requesting Provider: Dr. Viera
Performing Provider: June ALFORD for Dr. Crespo
Reason for Consultation: AFIB/flutter
Medical History
-
Chief Complaint: chest sensation, light-headedness, tachycardia
History of Present Illness:
74 y/o male with PAF s/p PVI 2018 (Dr. Yates)- previously on sotalol- d/c'd, hypertension, dyslipidemia, CAD with stenting, and DM who came to the ER 04/25/24 with recurrent AFIB. Cardioversion was discussed, but not done. He was seen in our
office on Friday and metoprolol was started, and CV was discussed. He had missed a dose of Eliquis for routine colonoscopy 04/19/24. He returned to hospital last night because when he was walking to the bank, he felt a chest discomfort (not pain, but
'odd' sensation), not like his previous angina. His apple watch told him HR was 140's-150's. He felt light-headed and came to the ER, where he was seen to be in AFIB with RVR. He is currently on a diltiazem drip and is in no distress at the time of
my assessment. HR is well-controlled at rest in 70's, but becomes elevated with ambulation.
Past Medical History
Past Medical History: Arrhythmias, CAD, HTN, Hypercholesterolemia and NIDDM
Social History
Alcohol: Other (3-4 days per week 2-4 drinks)
Family History
Family History: CAD
Allergies / Home Medications
Allergy/AdvReac Type Severity Reaction Status Date / Time
No Known Allergies Allergy Verified 04/25/24 07:55
�Medication �Instructions �Recorded �Confirmed �Type
acyclovir 400 mg tablet 400 mg PO BIDPRN PRN cold sores 07/24/18 04/27/24 History
apixaban 5 mg tablet (Eliquis) 5 mg PO BID Blood Clot 07/24/18 04/27/24 History
Prevention/Tx
empagliflozin 10 mg tablet 10 mg PO DAILY Diabetes 02/27/23 04/27/24 History
(Jardiance)
ezetimibe 10 mg tablet 10 mg PO DAILY High Cholesterol 02/27/23 04/27/24 History
metoprolol succinate 25 mg 25 mg PO QPM Blood Pressure 02/27/23 04/27/24 History
tablet,extended release 24 hr
multivitamin 1 tab PO DAILY Supplement 02/27/23 04/27/24 History
rosuvastatin 40 mg tablet 40 mg PO DAILY 04/27/24 04/27/24 History
Review of Systems
-
History Source: Patient
All other systems: Negative unless noted
Cardiac: Other (chest discomfort and tachycardia as described)
Physical Exam
Vital Signs
Temp Pulse Resp BP Pulse Ox
98 F 74 20 100/82 97
04/28/24 07:00 04/28/24 04:01 04/28/24 07:00 04/28/24 04:01 04/28/24 07:00
Lab Results
04/28/24 04:01
04/28/24 04:01
Physical Exam
General: Well Developed, Well Nourished and No Apparent Distress
HEENT: Normocephalic and Anicteric
Respiratory: Clear and Non Labored Respirations
Cardiac: Irregular Rhythm and Murmur (II/ systolic)
Musculoskeletal: No Edema
Skin: Warm and Dry
Neuro: AO x 3
Psych: Calm
Impression / Plan
-
AFIB with RVR, persistent, atrial flutter (typical):
-Rate-controlled on diltiazem drip- continue IV diltiazem for today- this medication requires intensive monitoring
-continue metoprolol
-continue Eliquis
-update echo
-SRIRAM/CV in AM (missed Eliquis last week for colonoscopy)- discussed with patient and will arrange
-drinks 2-4 drinks 3-4 days per week. I told him best practice with AFIB is no ETOH, but at least needs to cut back.
CAD with hx stenting:
-no recurrence of his anginal symptoms
-continue Eliquis, Crestor
Mild :
-update echo
Data Reviewed
-
EKG: Tracing Personally Visualized and interpreted (AFlutter 97 BPM)
Medical Tests (Nuc Med, Echo etc): Report Reviewed by me (Echo 09/20/21: EF 55-60% by visual assessment. Mild concentric left ventricular hypertrophy. Mildly dilated left atrium. Indexed LA volume is mildly abnormal (35-41 mL/m2). Mild aortic
stenosis with calcified, trileaflet aortic valve with peak and mean gradients of 28 and 14 mmHg, respectively. Estim)
Labs: Labs Reviewed by me
--- NOTE | 2024-04-28 11:15 | CM ---
Chart reviewed. Patient is independent of ADLS, lives with his n a 2 STH, 3 DARLENE, 0 DME. Offered patient substance abuse counseling, patient denied. Plan is for the patient to return home. CM to follow
[2024-04-28] MEDS: CARDIZEM 125 IV (15:00)
[2024-04-28] MEDS: TOPROL XL 25 MG PO (17:57)
--- NOTE | 2024-04-28 20:55 | PTCARENOTE ---
Pt received at change of shift, sitting OOB in chair. See nursing shift assessment for full assessment. Ox3, HR 70's, aflutter. Cardizem gtt running @ 10ml/hr. Titrated to 5ml/hr for HR in 70's. No concerns at this time. Call yang in reach.
[2024-04-29 03:00] VITALS: BP 114/82
--- NOTE | 2024-04-29 03:07 | PTCARENOTE ---
Rec'd pt at 2300. Pt on TELE monitor in Aflutter with rate controlled, VSS and AAOx3. Pt denied any pain or palpitations and has Cardizem infusing at 5mL's per hour. Pt NPO at midnight for SRIRAM and possible cardioversion today. Pt resting with
call yang in reach.
[2024-04-29 03:35] VITALS: BP 114/82
[2024-04-29 05:10] LABS: Hematocrit 44.5 % (39.0-52.0); Mean Corp Hgb Conc. 35.2 g/dL (33.0-37.0); Mean Corpuscular Hgb 32.3 pg (27.0-31.0); Mean Corpuscular Volume 91.7 fL (80.0-94.0); Mean Platelet Volume 10.7 fL (7.4-10.4); Platelet Count 126 10^3/uL (130-400); Red Blood Cell Count 4.95 10^6/uL (4.70-6.10); Red Cell Dist. Width 12.2 % (11.5-14.5); White Blood Cell Count 6.4 10^3/uL (4.8-10.8)
[2024-04-29 05:12] LABS: Blood Urea Nitrogen 21 mg/dl (9-20); Calcium 9.2 mg/dl (8.4-10.2); Carbon Dioxide 24 mmol/L (22-30); Chloride 106 mmol/L (98-107); Estimated Creatinine Clearance 94 ml/min; Glucose 137 mg/dl (70-99); Potassium 4.2 mmol/L (3.5-5.1); Sodium 138 mmol/L (135-145); eGFR > 60.00
[2024-04-29 05:20] VITALS: BMI 29.5
[2024-04-29 07:33] VITALS: BP 107/75
[2024-04-29] MEDS: ELIQUIS 5 MG PO (07:59)
--- NOTE | 2024-04-29 09:10 | W.PN.HOSP.TC ---
Addendum entered and electronically signed by Sajan Narayanan MD 04/29/24 11:21:
Total time spent on d/c = 32 min. This included today's physical exam, progress note, review of laboratory and diagnostic data, preparation of discharge documents and prescriptions, and discussions about the pt's hospital course and discharge plan
with the patient and other medical physics researcher involved in the patient's care.
Addendum entered and electronically signed by Sajan Narayanan MD 04/29/24 09:21:
I saw and evaluated the patient. I reviewed the resident�s note and agree with findings and plan as documented in the resident�s note.
Denies CP/SOB.
Gen: NAD, AAOx3.
Eyes: EOMI, PERRLA, no scleral icterus.
Neck: supple.
CV: remains RRR, +S1/S2, no m/r/g.
Resp: CTAB anteriorly, no rales, wheezes, or rhonchi.
Abd: +BS, soft, NT, ND
Skin: No rashes.
Neuro: remains CN 2-12 intact, non-focal.
Psych: Normal mood and affect.
Echo (TTE): Normal left ventricular size and function with mild concentric remodeling and
normal regional wall motion. LV ejection fraction is 60-65% by Fontenot's method
of discs. Diastolic function indeterminate.
Normal right ventricular size and function.
Mild left atrial dilation.
Thickened, trileaflet aortic valve with restricted leaflet motion and mild to
moderate aortic stenosis.
Mildly dilated aortic root and ascending aorta.
No evidence of pulmonary hypertension.
No significant change since the prior study of 09/20/2021.
Atrial flutter with RVR:
-Tele with aflutter
-cont cardizem gtt
-cont Eliquis
-echo above, unremarkable and no change from prior
-TEECV today
-discussed with cardiology
Original Note:
Today's Communication/Plan
-
Pt scheduled for SRIRAM and cardioversion today. Continue diltiazem drip and Eliquis
Assessment / Plan
Assessment / Plan
# Atrial fibrillation with RVR possibly from alcohol use
-EKG shows A.fib
-Echo 04/28/24 showed LVEF 60-65% with intermediate diastolic dysfunction. No intracardiac mass or thrombus formation seen
-On telemetry
-Continue Cardizem drip
-Continue Eliquis
-Continue metoprolol
-Check TSH
-N.p.o. for potential cardioversion today
-Pt scheduled for SRIRAM and cardioversion today
#Moderate alcohol use
-Monitor for withdrawal
#CAD status post stents
#Mild aortic stenosis
#Essential hypertension
#GERD
#DM2 -Continue Jardiance
#Hypercholesterolemia -Continue Zetia, statin
Anticipated Discharge: Within 24 hours
Subjective/Interval History
-
Date of Service: April 29, 2024
Objective Data
-
Labs:
Laboratory Results
04/29/24
03:44
WBC 6.4
Hgb 16.0
Hct 44.5
Plt Count 126 L
Sodium 138
Potassium 4.2
Chloride 106
Carbon Dioxide 24
BUN 21 H
Creatinine 0.7
Glucose 137 H
Calcium 9.2
Vital Signs:
Vital Signs
Temp Pulse Resp BP Pulse Ox
97.2 F 74 18 107/75 96
04/29/24 07:31 04/29/24 08:00 04/29/24 07:31 04/29/24 07:33 04/29/24 07:31
I&O
04/28/24 04/29/24 04/30/24
06:59 06:59 06:59
Intake Total 290 / 290 890 / 890
Balance 290 / 290 890 / 890
Review of Systems
-
History Source: Patient
Respiratory: Reports No Symptoms
Cardiac: Reports No Symptoms
Abdomen/GI: Reports No Symptoms
Genitourinary: Reports No Symptoms
Neuro: Reports No Symptoms
Physical Exam
-
Respiratory: Clear to Auscultation
Cardiac: Regular Rhythm and S1/S2
GI: Soft, Nontender and Nondistended
Musculoskeletal: No Edema
Neuro: AO x 3
Psych: Calm
--- NOTE | 2024-04-29 11:03 | W.PN.CD ---
Today's Communication / Plan
-
SRIRAM DCCV today
Back in [facility]
OK for discharge.
We will sign off please call with questions/concerns.
Impression / Plan
-
AFIB with RVR, persistent, atrial flutter (typical):
-stop dilt, s/p DCCV
-continue metoprolol
-continue Eliquis
-update echo --> Below
-SRIRAM/CV back in [facility]
-drinks 2-4 drinks 3-4 days per week. I told him best practice with AFIB is no ETOH, but at least needs to cut back.
CAD with hx stenting:
-no recurrence of his anginal symptoms
-continue Eliquis, Crestor
Mild :
-update echo
Subjective: feeling well no new complaints
TTE:CONCLUSIONS
Normal left ventricular size and function with mild concentric remodeling and
normal regional wall motion. LV ejection fraction is 60-65% by Fontenot's method
of discs. Diastolic function indeterminate.
Normal right ventricular size and function.
Mild left atrial dilation.
Thickened, trileaflet aortic valve with restricted leaflet motion and mild to
moderate aortic stenosis.
Mildly dilated aortic root and ascending aorta.
No evidence of pulmonary hypertension.
No significant change since the prior study of 09/20/2021.
Physical Exam
Vital Signs/Labs
Vital Signs
Temp Pulse Resp BP Pulse Ox
97.2 F 74 18 107/75 96
04/29/24 07:31 04/29/24 08:00 04/29/24 07:31 04/29/24 07:33 04/29/24 07:31
04/28/24 04/29/24 04/30/24
06:59 06:59 06:59
Actual Weight 204 lb 205 lb 4.006 oz
04/29/24 03:44
04/29/24 03:44
Physical Exam
Constitutional: No acute distress and Comfortable
EENT: Anicteric
Cardiovascular: Rhythm & rate is regular and Pedal edema is absent
Respiratory: Respiratory effort normal
GI: Soft
Neuro/Psych: AO x 3
Data Reviewed
-
Date of Service: April 29, 2024
EKG: Tracing Personally Visualized and interpreted (sr)
Echo: Tracing Personally Visualized and interpreted and Report Reviewed by me
Labs: Labs Reviewed by me
--- NOTE | 2024-04-29 11:28 | W.DCSUMMARY ---
Addendum entered and electronically signed by Sajan Narayanan MD 04/29/24 11:53:
Read, reviewed, and agree. See same day progress note for additional details.
Original Note:
Discharge Summary
Discharge Data
Date of Admission: 04/27/24
Date of Discharge: 04/29/24
-
Pending Results: No
Hospital Course
Primary diagnosis:
Atrial fibrillation with rapid ventricular response
Secondary diagnosis:
Coronary artery disease
Mild aortic stenosis
Essential hypertension
GERD
Diabetes mellitus type 2
Hypercholesterolemia
Moderate alcohol use
Hospital course:
Chato is a 74-year-old male with a past medical history of A-fib presented to the ED on 04/27/2024 complaining of chest tightness, palpitations and weakness since Friday. He went to the ED on Friday as that morning he felt he was in a.fib.
Cardiology was contacted they agreed for the patient to go home and observe with outpatient follow-up. On Friday, he went to the cardiology office and outpatient cardioversion was agreed upon for May as patient had missed an Eliquis dose due
to a routine colonoscopy earlier that week. On the , the patient came back to the ED. EKG showed atrial flutter with variable AV block. Pt was admitted and cardiology was consulted. Patient was placed on a Cardizem drip and a SRIRAM and
cardioversion was planned for 04/29. Echo showed ejection fraction 60 to 65% with no intracardiac mass or thrombus formation seen. Cardioversion was performed and successful.
Today, patient is clinically stable and in sinus rhythm. Cardiology recommends continuation of metoprolol and Eliquis. Cardiology also discussed alcohol use and atrial fibrillation with the patient. Recommended to follow-up with PCP in a week.
Discharge Plan
-
Patient Disposition: Home (Routine Discharge)
Discharge Diagnosis/Procedures: Atrial fibrillation with rapid ventricular response, cardioversion
Condition: Good
Diet: As tolerated
Activity: No restrictions
Driving Restrictions: As prior to admission
Bathing Restrictions: None
Referrals:
Aries Melo MD [Family Provider] - in less than 1 week
Prescriptions:
Continued
Eliquis 5 MG tablet
5 mg PO BID
acyclovir 400 MG tablet
400 mg PO BIDPRN PRN (Reason: cold sores)
multivitamin Tablet
1 tab PO DAILY
metoprolol succinate 25 mg tablet extended release 24 hr
25 mg PO QPM
Patient Comments:
02/27/2023: Pt had an old script that was originally filled in March of 2022. Pt states heart rate was high so he took one dose and it helped
ezetimibe 10 mg tablet
10 mg PO DAILY
Jardiance 10 mg tablet
10 mg PO DAILY
rosuvastatin 40 mg tablet
40 mg PO DAILY
Discharge Orders:
Discharge Patient (As Directed); Ordered 04/29/24
Ordered By: Sajan Narayanan
Care Plan Goals
Care Plan Goals:
Problem: Readiness for enhanced knowledge related to diagnosis and treatment plan
Goal: Understand your diagnosis and treatment plan needs, including medications if applicable.
Instructions: Know your diagnosis, underlying causes and treatment plan options, including medications if applicable. Consult with your health care team to learn about your diagnosis and treatment plan, including medications if applicable.
Discharge Date and Time
Print Language: LATVIAN
[2024-04-29 11:37] VITALS: BP 111/79
[2024-04-29] MEDS: ZETIA 10 MG PO (11:41)
[2024-04-29] MEDS: FOLVITE 1 MG PO (11:42)
[2024-04-29] MEDS: VITAMIN B1 100 MG PO (11:42)
[2024-04-29] MEDS: JARDIANCE 10 MG PO (11:42)
[2024-04-29] MEDS: THERAGRAN 1 TABLET PO (11:42)
[2024-04-29] MEDS: CRESTOR 40 MG PO (11:42)
== END 2024-04-29 13:23 | disposition home or self-care (01) | DRG 310 ==
LOC: IVU 18:50
PROVIDERS: Internal Medicine Cardiovascular Disease; ADMITTING PHYSICIAN Hospitalist; ATTENDING PHYSICIAN Internal Medicine; EMERGENCY PHYSICIAN Emergency Medicine; FAMILY PHYSICIAN Family Medicine; OTHER PHYSICIAN Internal Medicine
PROC: B24BZZ4 Ultrasonography of Heart with Aorta, Transesophageal (ICD-10-PCS; 2024-04-29)
PROC: 5A2204Z Restoration of Cardiac Rhythm, Single (ICD-10-PCS; 2024-04-29)
DX: I48.0 Paroxysmal atrial fibrillation (principal); Z79.01 Long term (current) use of anticoagulants; I48.92 Unspecified atrial flutter; I10 Essential (primary) hypertension; K21.9 Gastro-esophageal reflux disease without esophagitis; E11.9 Type 2 diabetes mellitus without complications; E78.00 Pure hypercholesterolemia, unspecified; I25.10 Atherosclerotic heart disease of native coronary artery without angina pectoris; I35.0 Nonrheumatic aortic (valve) stenosis
CPT/HCPCS: 80048; 80053; 84443; 85025; 85027; 92960; 93005; 93306; 93312; 93320; 93325; 96374; 96376; 99291

== ENCOUNTER 2024-07-21 09:19 | Day surgery (SDC) | payer MEDICARE, SELFPAY ==
[2024-07-16 08:32] VITALS: BMI 29.6
== END 2024-07-21 10:42 | disposition home or self-care (01) ==
LOC: CATH 09:19
PROVIDERS: ATTENDING PHYSICIAN Internal Medicine; FAMILY PHYSICIAN Family Medicine; OTHER PHYSICIAN Internal Medicine Cardiovascular Disease
DX: I48.0 Paroxysmal atrial fibrillation (principal); I10 Essential (primary) hypertension; E78.5 Hyperlipidemia, unspecified; I25.10 Atherosclerotic heart disease of native coronary artery without angina pectoris; Z95.5 Presence of coronary angioplasty implant and graft; E11.9 Type 2 diabetes mellitus without complications; I35.0 Nonrheumatic aortic (valve) stenosis; M19.90 Unspecified osteoarthritis, unspecified site; Z79.01 Long term (current) use of anticoagulants; Z79.84 Long term (current) use of oral hypoglycemic drugs
CPT/HCPCS: 92960; 93005

== ENCOUNTER 2024-08-16 06:01 | Day surgery (SDC) | payer MEDICARE, SELFPAY ==
[2024-08-10 10:43] VITALS: BMI 28.6
[2024-08-16] VITALS (22 sets, daily range): BP systolic 111–131; BP diastolic 67–87; BMI 29.5
--- NOTE | 2024-08-16 07:15 | PTCARENOTE ---
"Pt here for a PVI today. Pt states he was not told to stop his jardiance for today's procedure. Pt states his last dose was yesterday morning. Dr Mckeon and Dr Yates made aware. Dr Mckeon saw pt at pt bedside. Both Dr Mckeon and Dr You"Milan states ok to proceed with PVI today. Will continue to monitor."
[2024-08-16 07:16] LABS: Glucose - Point of Care 124 mg/dl (70-99)
--- NOTE | 2024-08-16 07:43 | ITS.CL.ABL ---
Store Operations Manager - Ablation
Ablation
Procedure Report:
ELECTROPHYSIOLOGIC STUDY AND POSSIBLE ABLATION
DATE: August 16, 2024
Primary Care Provider: Dr. Aries Melo
Primary Private Banker: Dr. Karen Valencia
INDICATION:
Symptomatic Atrial Fibrillation.
Paroxysmal
HISTORY: See H and P.
Recurrent symptomatic AF, poorly controlled with attempted medical therapy
She underwent cryoballoon PVI 09/22/2018 (was on sotalol that was subsequently discontinued).he also has history of hypertension, dyslipidemia, CAD status post overlapping drug-eluting stents 02/12/2016 to ostial/proximal circumflex occlusion, and LAD
PCI prior to that, and diabetes
He recently recurred with AF, hospitalization 04/27 through 04/29/2024 with recurrent atrial fibrillation with rapid ventricular response.� He was initiated on IV Cardizem and ultimately underwent SRIRAM and cardioversion 04/29/2024 restoring normal sinus
rhythm.� SRIRAM showed EF 60 to 65%, mild cLVH, mild to moderate aortic stenosis and no thrombus detected in the left atrial appendage.
He has been on uninterrupted Eliquis and denies any abnormal bleeding.
He recurred with symptomatic atrial fibrillation June 08, 2024.
HAS-BLED:
Age
CHADSVASc: 4
HTN
Age
Vascular Dz: CAD
PRESENTING RHYTHM: SR
HISTORY: See H and P.
Symptomatic AF, poorly controlled with attempted medical therapy.
ANTICOAGULATION: Eliquis 5 mg twice daily
'TIME-OUT': called and confirmed.
SEDATION/ANESTHESIA: provided via the anesthesia department using general anesthesia.
PROCEDURE:
Ultrasound Guidance performed by fl was utilized for femoral venous Vascular Access b/l.
A decapolar CS catheter was placed within the CS for mapping and pacing.
The intracardiac ultrasound catheter was positioned in the RA for continuous intracardiac ultrasound imaging.
Heparin bolus and infusion to target ACT at 300 -350 seconds was administered. Transseptal puncture was performed. This entailed advancing a sheath with dilator into the superior vena cava and withdrawing both (monitoring intracardiac ultrasound,
fluoroscopy and tip pressure) with the tip oriented toward the atrial septum. The fossa ovalis was engaged (indicated by sudden displacement of the sheath tip as well as tenting of the fossa seen on intracardiac ultrasound).
AcQCross transseptal system was used. Left atrial catheter position was confirmed by echocardiographic imaging, pressure monitoring (LA mean pressure 8 mm Hg) and fluoroscopy. The sheath was advanced over the dilator and positioned in the left
atrium.
The multipolar mapping catheter was initially positioned through the transseptal sheath for high density mapping.
Geometry and voltage mapping was performed using the [employer] multipolar grid catheter. Ensite-X was utilized for three-dimensional electroanatomical mapping.
A 3-D map was created using Ensite-X in Voxel mode. A 3-D reconstructed CT image was compared to the 3-D Navex map to assist in anatomic evaluation, mapping and ablation.
There is reconnection at the right superior pulmonary vein anteriorly in the right inferior pulmonary vein towards the yony between the right sided pulmonary veins.
The [employer] Pulse Select PFA catheter and system was used for cardiac ablation. Catheter positioning was guided and confirmed using both I.C.E. and fluoroscopy.
PV isolation approach was used to electrically re-isolate the RSPV and RIPVs.
Additional energy applications/additional ablation set was required to accomplish wide area circumferential ablation around each of the pulmonary vein sets (RSPV+RIPV and LSPV+LIPV)
A second tachycardia was present, a roof dependent left atrial flutter at cycle length 290 ms was mapped. Pulsed electric field ablation targeting the dome of the left atrium terminated the tachycardia.
Additionally ablation was performed to accomplish LA posterior wall ablation.
Remapping with the [place] multipolar grid catheter found that all PVPs were eliminated at each vein demonstrating entrance block. Also pacing from the multipolar mapping catheter around the the circumference of the ostia was performed at 10 ma and
2.0 msec output to assess for exit block. This demonstrated electrical isolation at each of the pulmonary vein ostia (LSPV, LIPV, RSPV, RIPV). There is also entrance and exit block at the LA posterior wall.
Programmed electrostimulation failed to induce any sustained arrhythmias.
I.C.E. :
Pre-Ablation Post-Ablation
LVEF: 55 % 55 %
WMA: none none
Pericardial effusion: trace post trace post
COMPLICATIONS:
None
SUMMARY:
- Mapping and ablation to isolate the PVs
- Mapping and ablation of second tachycardia (left atrial dome dependent macro reentrant atrial tachycardia)
- Additional AF ablation set after PVI (WACA and LA posterior wall isolation).
- 3-D Electroanatomical Mapping
- Intracardiac Ultrasound
Post ablation, I discussed today's findings and results with the patient's [ ].
RECOMMENDATIONS:
- Observe in monitored bed.
- Maintain oral anticoagulation.
- Continue oral anticoagulation
- Post ablation office visit with VIDA in 2 weeks.
- Continue cardiovascular care with Dr Valencia
Copy to:
Dr. Aries Melo
Dr. Karen Valencia
[2024-08-16 08:29] LABS: ACT-LR - POC 290 Seconds (116-155)
[2024-08-16 08:47] LABS: ACT-LR - POC 290 Seconds (116-155)
[2024-08-16 09:10] LABS: ACT-LR - POC 324 Seconds (116-155)
[2024-08-16 10:14] LABS: Glucose - Point of Care 160 mg/dl (70-99)
--- NOTE | 2024-08-16 14:20 | W.PN.UPDATE ---
Update Note
Progress Note Update
Pt seen post PFA. Right groin without ht/bleeding, non tender. OOB ambulating, urinating without difficulty. Post EKG NSR 63, no acute changes. Resume eliquis tonight at usual time, continue other meds as before. Followup with Dr. Valencia as
scheduled. Home today if groin site/tele remain stable.
== END 2024-08-16 14:15 | disposition home or self-care (01) ==
LOC: CATH 06:01
PROVIDERS: ATTENDING PHYSICIAN Internal Medicine Cardiovascular Disease; FAMILY PHYSICIAN Family Medicine; OTHER PHYSICIAN Internal Medicine Cardiovascular Disease
DX: I48.0 Paroxysmal atrial fibrillation (principal); I47.19 Other supraventricular tachycardia; E11.9 Type 2 diabetes mellitus without complications; Z95.5 Presence of coronary angioplasty implant and graft; I35.0 Nonrheumatic aortic (valve) stenosis; I25.10 Atherosclerotic heart disease of native coronary artery without angina pectoris; E78.5 Hyperlipidemia, unspecified; I10 Essential (primary) hypertension; Z79.01 Long term (current) use of anticoagulants; Z98.890 Other specified postprocedural states; M19.90 Unspecified osteoarthritis, unspecified site; Z79.84 Long term (current) use of oral hypoglycemic drugs; Z79.899 Other long term (current) drug therapy
CPT/HCPCS: C1732; C1894; C1769; C1730; C1892; C1733; C1766; 82962; 85347; 93005; 93655; 93656; 93657

== ENCOUNTER 2024-12-18 10:00 | Emergency (ER) | payer MEDICARE, SELFPAY ==
[2024-12-18 10:08] VITALS: BP 126/96
[2024-12-18 11:00] VITALS: BP 120/67
--- NOTE | 2024-12-18 11:11 | ED.GENMED ---
History of Present Illness
General
Chief Complaint: Dizziness
Source: patient
Time Seen by Provider: 12/18/24 10:47
History of Present Illness
History of Present Illness:
74-year-old male with past medical history of CAD status post multiple cardiac stents, A-fib status post cardiac ablation, valvular disease, hypertension, hyperlipidemia, GERD presenting to the ER for evaluation after awakening at sometime in the
middle of the night feeling vertiginous when trying to get up and looked to the left side (asymptomatic when trying to get up and looking to the right), was able to go back to sleep but woke his up around 515 when he still felt the same
symptoms and needing help getting out of bed. was able to help the patient ambulate to the bathroom and then he went back to sleep but again continued to feel dizzy upon awakening again around 8 this morning, was able to convince the
patient to come to the ER for further evaluation. Patient states that he still feels generally unwell at rest noting a discomfort to the left side of his neck that goes down the entirety of his body but denies any weakness or numbness to the
affected left side. Patient states that he still feels that when he sits up or attempts to get up and moved to the left he still has the vertigo. He denies any history of similar. Family history was questionable for mother having possible CVA.
Patient continues on his Eliquis following his cardiac ablation and reports good compliance with this. Denies any fevers or recent illnesses. No otalgia or fullness sensation, no tinnitus. No other concerns presently.
Past History
Past History
ED Past Medical History: Arrthythmia (Atrial fib/Flutter), CAD, GERD, HTN and Hypercholesterolemia
ED Past Surgical History: Cardiac (Ablation, Stents X3,), Orthopedic and Other (Hernia repair)
Patient has exhibited threatening behavior?: No
PSI?: No
Social History
Tobacco: Former smoker (Occasional cigar)
Alcohol: Occasional
Drug: None
Personal:
Living: with family
Employment: Employed
Review of Systems
Review of Systems
All Other Systems: ROS reviewed and negative except as documented in HPI and ROS
Phy Exam
Physical Exam
Physical Exam:
GENERAL: Alert , in no apparent distress
HEAD: Normocephalic atraumatic
EYE: pupils equal and reactive, pupils 4 mm bilateral, EOMI, I did not observe nystagmus however patient stated vertigo got worse when looking up and down, not horizontal
NECK: Supple, no tenderness
ENT: o/p clr, mmm.
CARDIAC: Regular rate and rhythm, systolic murmur most pronounced down the left sternal border.
LUNGS: Clear breath sounds bilaterally, no acute respiratory distress, no wheezes/rales/rhonchi
ABDOMEN: Soft, without focal tenderness, no r/g, no cvat
NEUROLOGICAL: Alert and oriented, no focal neuro deficits, moves all extremities, no sensory deficits, no facial droop
SKIN: Warm and dry, skin intact.
MUSCULOSKELETAL: No edema, well perfused.
PSYCH: Normal and appropriate interaction.
Scores
Heart Failure Risk
Heart Failure Risk Score: Not Applicable
Heart Score for Chest Pain Patients
STEMI patient?: Not applicable
Withdrawal Assessment of Alcohol
Withdrawal Assessment Completed?: Not applicable
Course
Orders/Labs/Results
Orders:
Orders
12/18/24 10:01
Electrocardiogram (*1) Urgent
Reason for Study: Vertigo / Dizzy
12/18/24 10:02
EKG- Treatment ONCE
12/18/24 11:05
CT Head & Neck Angio W/wo IV Urgent
Comment:
Reason For Exam: vertigo, left sided
Meclizine [Antivert] 25 mg PO NOW STA
Physical Therapy Consult [Pt Eval And Treat] Urgent
Treatment: vestibular therapy
Activity Level: Ambulate
12/18/24 11:14
Basic Metabolic Panel Urgent
Complete Blood Count/With Diff Urgent
Troponin I Urgent
12/18/24 13:59
Meclizine [Antivert] 25 mg PO NOW STA
Abnormal Lab Results
12/18/24
11:14
RBC 4.67 L 10^6/uL
(4.70-6.10)
MCH 32.1 H pg
(27.0-31.0)
Plt Count 122 L 10^3/uL
(130-400)
MPV 10.7 H fL
(7.4-10.4)
Absolute Lymphs (auto) 1.0 L 10^3/uL
(1.2-3.4)
Neutrophils % 76.4 H %
(42.2-75.2)
Lymphocytes % 15.4 L %
(20.5-51.1)
Creatinine 0.6 L mg/dL
(0.7-1.3)
Glucose 190 H mg/dl
(70-99)
12/18/24 11:14
12/18/24 11:14
Vital Signs
Initial and Last Documented VS:
Initial Vital Signs
Temp Pulse Resp BP Pulse Ox
97.4 F 61 16 126/96 98
12/18/24 10:08 12/18/24 10:08 12/18/24 10:08 12/18/24 10:08 12/18/24 10:08
Last Documented Vital Signs
Temp Pulse Resp BP Pulse Ox
97.6 F 82 16 136/81 99
12/18/24 14:23 12/18/24 14:23 12/18/24 14:23 12/18/24 14:23 12/18/24 14:23
MDM/Problems Addressed
Differential Diagnosis Includes:
BPPV, labyrinthitis, posterior cerebellar stroke, vertebral dissection, electrolyte derangement, atypical ACS presentation, orthostasis
MDM/Problems Addressed:
74-year-old male presenting to the ER for evaluation of acute onset of vertigo that occurred at some point between 10:30 PM and 5:15 AM this morning. Symptoms continue when patient attempts to get up and move leftward. Currently hemodynamically
stable. Patient does have risk factors for stroke including history of atrial fibrillation as well as suspected family history and former smoking history. Will check CT and CTA of the head and neck. Physical therapy consult ordered. Labs
ordered. Following PT consult will consider Antivert for symptomatic relief
Chronic conditions affecting care: Arrhythmia (Atrial fibrillation)
*Radiology
Radiology exam reviewed: radiology read reviewed
*Pulse Oximetry
Patient hypoxic: no
*EKG
Interpreted by ED Provider?: Yes
Heart Rate: 58
Rate: bradycardiac
Rhythm: sinus and PAC's
[place]: left axis deviation
Ischemia: no ischemia
*Basin Tender Interpretation
Rate: normal
Rhythm: sinus
*Critical Care Note
Total Time (30-74mins, 75-104mins- exclusive of procedures): Not Applicable
Data Reviewed
Review of Other/Old Records Reveals: Labs, Records and Testing
Patient Management
Escalation/DeEscalation of care consider admission/obs:
CT and CTA without any acute abnormalities.
Patient seen by physical therapy and this findings on vestibular treatment to be most likely related to BPPV. Patient felt symptomatic relief following vestibular treatments. He was able to ambulate with a non-ataxic gait. Patient does feel
comfortable being discharged home. Prescription for Antivert provided. Patient was also given a prescription for outpatient vestibular therapy. Aware of return precautions. Stable for discharge home.
ED Attending Note
-
Portions of this chart may have been created with voice recognition software.� Occasional wrong word or��sound alike� substitutions may have occurred due to the inherent limitations of voice recognition software.
Discharge Plan
Departure
Patient Disposition: Home (Routine Discharge)
Date of Disposition: 12/18/24
Time of Disposition: 14:04
Patient with high blood pressure during this ER visit?: No
Discharge Problem:
Vertigo
Instructions: Vertigo (a Type of Dizziness) (DC)
Prescriptions:
New
meclizine 25 mg tablet
25 mg PO BID PRN (Reason: dizziness) Qty: 10 0RF
No Action
Eliquis 5 MG tablet
5 mg PO BID
acyclovir 400 MG tablet
400 mg PO BIDPRN PRN (Reason: cold sores)
multivitamin Tablet
1 tab PO DAILY
metoprolol succinate 25 mg tablet extended release 24 hr
50 mg PO QPM
ezetimibe 10 mg tablet
10 mg PO DAILY
rosuvastatin 40 mg tablet
40 mg PO DAILY
ascorbic acid (vitamin C) [Vitamin C] 1,000 mg Tablet
1,000 mg PO DAILY
Jardiance 25 mg Tablet
25 mg PO DAILY
tadalafil 20 mg Tablet
20 mg PO DAILY PRN (Reason: as needed)
Referrals:
Aries Melo MD [Family Provider] -
Interventions
Interventions:
*Risk Screen - Suicide Last Done: 12/18/24 10:08
*General Assessment Last Done: 12/18/24 11:33
*Neglect/Abuse Screening Last Done: 12/18/24 10:08
*ED- Fall Risk Assessment Last Done: 12/18/24 11:33
*ED COVID-19 Vaccine History Last Done: 12/18/24 11:33
*Nursing Disposition Last Done: 12/18/24 14:23
ED- Neurological Assessment Last Done: 12/18/24 11:33
ED- Cardiac Assessment Last Done: 12/18/24 11:33
ED Swallowing Screen Last Done: 12/18/24 11:33
Discharge Date and Time
Print Language: YAKUT
[2024-12-18 11:12] VITALS: BMI 29.6
[2024-12-18 11:33] VITALS: BP 120/67
[2024-12-18 11:42] LABS: Blood Urea Nitrogen 20 mg/dl (9-20); Calcium 9.4 mg/dl (8.4-10.2); Carbon Dioxide 27 mmol/L (22-30); Chloride 104 mmol/L (98-107); Estimated Creatinine Clearance 106 ml/min; Glucose 190 mg/dl (70-99); Sodium 140 mmol/L (135-145); eGFR > 60.00
[2024-12-18 11:43] LABS: Troponin I < 0.012 ng/ml
[2024-12-18 11:54] LABS: % Basophils 0.6 % (0-2); % Eosinophils 1.2 % (0-6); % Immature Granulocytes 0.3 % (0-0.5); % Lymphocytes 15.4 % (20.5-51.1); % Monocytes 6.1 % (1.7-9.3); % Neutrophils 76.4 % (42.2-75.2); Absolute Eosinophils 0.1 10^3/uL (0-0.7); Absolute Monocytes 0.4 10^3/uL (0.1-0.6); Hematocrit 43.6 % (39.0-52.0); Mean Corp Hgb Conc. 34.4 g/dL (33.0-37.0); Mean Corpuscular Hgb 32.1 pg (27.0-31.0); Mean Corpuscular Volume 93.4 fL (80.0-94.0); Mean Platelet Volume 10.7 fL (7.4-10.4); Nucleated Red Blood Cells % 0 % (-); Platelet Count 122 10^3/uL (130-400); Red Blood Cell Count 4.67 10^6/uL (4.70-6.10); Red Cell Dist. Width 12.4 % (11.5-14.5); White Blood Cell Count 6.5 10^3/uL (4.8-10.8)
--- NOTE | 2024-12-18 13:21 | EDRN ---
physical therapy currently at the pts bedside
[2024-12-18] MEDS: ANTIVERT 25 MG PO (14:20)
[2024-12-18 14:23] VITALS: BP 136/81
== END 2024-12-18 14:52 | disposition home or self-care (01) ==
LOC: EMR 10:00
PROVIDERS: Physician Assistant Medical; EMERGENCY PHYSICIAN Emergency Medicine; FAMILY PHYSICIAN Family Medicine
DX: R42 Dizziness and giddiness (principal); I10 Essential (primary) hypertension; E78.5 Hyperlipidemia, unspecified; I25.10 Atherosclerotic heart disease of native coronary artery without angina pectoris; I48.91 Unspecified atrial fibrillation; Z79.01 Long term (current) use of anticoagulants; Z87.891 Personal history of nicotine dependence; Z95.5 Presence of coronary angioplasty implant and graft
CPT/HCPCS: 99284; 70496; 70498; 80048; 84484; 85025; 93005; Q9967